=== PATIENT | male | born 1965 | race Caucasian/White ===

== ENCOUNTER 2020-09-15 09:31 | Outpatient (CLI) | payer MEDICAID, SELFPAY ==
--- NOTE | 2020-09-15 09:57 | XR_ITS ---
WS: [id number] LUMBAR SPINE TECHNIQUE: 5 views of the lumbar spine CLINICAL INFORMATION: SCOLIOSIS, LOW BACK PAIN COMPARISON: None. FINDINGS: Osteopenia. 5 nonrib-bearing lumbar vertebral bodies. Mild chronic anterior wedging at L3 and L4. Dis c space narrowing L4-L5 and L5-S1. Facet arthropathy lower lumbar spine. Aortic calcification. IMPRESSION: 1. Minimal lumbar curve convex right. Moderate spondylitic changes. 2. No acute appearing compression fractures. 3. Mild disc space narrowing L4-L5 and L5-S1.
--- NOTE | 2020-09-15 09:57 | XR_ITS ---
WS: [id number] THORACIC SPINE TECHNIQUE: 3 views of the thoracic spine CLINICAL INFORMATION: SCOLIOSIS, LOW BACK PAIN COMPARISON: None. FINDINGS: Osteopenia. Mild chronic anterior wedging in the mid thoracic spine with mild kyphosis. No acute appe aring compression fractures. Mild disc space narrowing in the mid thoracic spine. No acute thoracic s pine findings. XR/XR thoracic spine 2V [id number] IMPRESSION: 1. Mild thoracolumbar curve with mild thoracic kyphosis. 2. Mild chronic anterior wedging in the mid thoracic spine. No acute appearing compression fractures. 3. No acute thoracic spine findings.
== END 2020-09-15 09:32 | disposition home or self-care (01) ==
LOC: RADWPI 09:37
PROVIDERS: PCP Nurse Practitioner Family; Visit Provider Nurse Practitioner Family
DX: M40.294 Other kyphosis, thoracic region (principal); M48.54XA Collapsed vertebra, not elsewhere classified, thoracic region, initial encounter for fracture; X58.XXXA Exposure to other specified factors, initial encounter
CPT/HCPCS: 72070; 72114